=== PATIENT | female | born 1950 | race Two or more races ===

== ENCOUNTER → 2016-08-16 | Outpatient (CLI) | payer OTHER ==
[~2016-08-16] MED LIST: ACET500T76 PO; MELO7.5O PO; MORP15TA92 PO
--- NOTE | 2016-08-18 07:52 | RADRPT ---
PROCEDURE: XR Knees. CLINICAL INDICATION: Pain TECHNIQUE: 5 views of the bilateral knees are available for review. COMPARISON: None available FINDINGS: Right knee: There is severe joint space narrowing and osteophyte formation involving medial and pat ellofemoral compartments. No acute fracture or dislocation is identified. Bony mineralization is n ormal. There is no radiodense foreign body. Alignment is anatomic. Left knee: There is severe joint space narrowing and osteophyte formation involving medial and crisostomo llofemoral compartments. No acute fracture or dislocation is identified. Bony mineralization is no rmal. There is no radiodense foreign body. Alignment is anatomic. IMPRESSION: 1. Severe osteoarthrosis of the bilateral knees, as above. 2. No acute fracture or dislocation is seen. RPTAT: EE .Harsh Wang MD, Date Time Electronically viewed and signed by .Harsh Wang MD, on 08/18/2016 07:51 .R/
== END | disposition home or self-care (01) ==
LOC: HKI 14:32
PROVIDERS: ATTEND Orthopaedic Surgery
DX: M17.0 Bilateral primary osteoarthritis of knee (principal); M25.562 Pain in left knee; M25.561 Pain in right knee
CPT/HCPCS: 73564; Z7500; G0463

== ENCOUNTER → 2016-08-30 | Outpatient (CLI) | payer OTHER ==
--- NOTE | 2016-08-30 21:39 | HKNOTE ---
DATE OF SERVICE: 08/30/2016 INTERVAL HISTORY: The patient presents today for a followup evaluation on her left knee. She was noted to have osteoarthritis of bilateral knees and would like to proceed with a Monovisc injection to her left knee today. The patient has been having increasing pain. She denies any fevers, chills. She denies any erythema or warmth. She presents today for a followup evaluation and injection to the left knee today. PHYSICAL EXAMINATION: Today, she is alert and oriented x4, and in no acute distress. Exam of the left knee demonstrates a 2+ patellofemoral crepitus. Varus and valgus forces are stable. There is no effusion. There is no erythema or warmth noted. Compartments are otherwise soft. She is neurovascularly intact distally. ASSESSMENT: Bilateral knee osteoarthritis. DISCUSSION: The patient received a Monovisc injection to her left knee today. She tolerated the procedure well. She was encouraged to ice the knee today and take wghy-idr-alxoqkf pain medication as needed. We will see her back next week for an injection to the right knee as well. She is to call the office if she has any adverse events or concerns. PROCEDURE NOTE: The procedure was fully explained to the patient and informed consent was obtained prior to the procedure. The area was prepped and draped in sterile fashion using Betadine. The lateral aspect of the knee was anesthetized using ethyl chloride. A 22-gauge needle was introduced into the superolateral aspect of the knee and 4 mL of Monovisc was injected into the left knee joint. The patient tolerated the procedure well. A sterile bandage was then applied. All questions and concerns were addressed at the time of procedure. Dictated By: ALENA RAGLAND/BRITTANY Conf#: [id number] DID#: [id number]
== END | disposition home or self-care (01) ==
LOC: HKI 10:31
PROVIDERS: ATTEND Orthopaedic Surgery
DX: M17.0 Bilateral primary osteoarthritis of knee (principal)

== ENCOUNTER → 2016-09-06 | Outpatient (CLI) | payer OTHER ==
--- NOTE | 2016-09-06 23:42 | HKNOTE ---
DATE OF SERVICE: 09/06/2016 INTERVAL HISTORY: The patient presents today for a followup evaluation on her right knee. She unde rwent a Monovisc injection to her left knee last week successfully. The patient is having improveme nt of her pain overall. She had no adverse events from the previous injection. She is here today f or Monovisc injection into her right knee. She denies any fevers or chills. She is complaining of right knee pain greater than left. PHYSICAL EXAMINATION: Today, she is alert and oriented x4 and in no acute distress. Exam of the ri ght knee demonstrates 2+ patellofemoral crepitus. Varus and valgus forces are stable. Range of mot ion is 0 to 120 degrees. Compartments are otherwise soft. There is no effusion. She is neurovascu larly intact distally. ASSESSMENT: Bilateral knee osteoarthritis. DISCUSSION: The patient received a Monovisc injection to her right knee today. She tolerated the p rocedure well. She was encouraged to ice the knee and take upvq-hgc-ckohpos pain medications as nehilario ded. We will see her back on an as needed basis. She is to call the office if she has any adverse events or concerns. PROCEDURE NOTE: The procedure was fully explained to the patient and informed consent was obtained prior to the start procedure. The area was prepped and draped in sterile fashion using Betadine. L ateral aspect of the right knee was anesthetized using ethyl chloride. A 22-gauge needle was introd uced into the superior lateral aspect of the right knee and 4 mL of Monovisc was injected into the r ight knee joint. The patient tolerated the procedure well. Sterile bandage was then applied. All questions and concerns were addressed at the time of the procedure. Dictated By: ALENA RAGLAND/BRITTANY Conf#: [id number] DID#: [id number]
== END | disposition home or self-care (01) ==
LOC: HKI 10:51
PROVIDERS: ATTEND Orthopaedic Surgery
DX: M17.0 Bilateral primary osteoarthritis of knee (principal)
CPT/HCPCS: 20610; J7327